=== PATIENT | male | born 1980 | race Caucasian/White ===

== ENCOUNTER 2017-09-01 18:26 | Emergency (ER) | payer MEDICAID ==
[~2017-09-01] VITALS: Ht 162.6 cm; Wt 67.3 kg
[2017-09-01 21:43] VITALS: BP 117/79
== END 2017-09-01 21:00 | disposition home or self-care (01) ==
LOC: ED 18:26
DX: H72.91 Unspecified perforation of tympanic membrane, right ear (principal); R51 Headache